=== PATIENT | female | born 1945 | race Caucasian/White ===

== ENCOUNTER 2019-06-18 21:11 | Emergency (ER) | payer MEDICARE ==
[2019-06-18] MEDS ORDERED: Bacitracin 1 PK ONE (21:44)
--- NOTE | 2019-06-18 22:05 | RAD ---
Right knee 4 views HISTORY: Fall. Knee injury. FINDINGS: Joint space narrowing at the lateral compartment with chronic appearing mild depression of the lateral tibial plateau. Moderate tricompartmental osteophytosis. No acute fracture or dislocation. Fluid distends the suprapatellar bursa on the lateral view. Dystrophic calcification ant erior to the proximal tibial shaft. IMPRESSION: Joint fluid may reflect and effusion from otherwise moderate osteoarthritic changes or co uld represent hemarthrosis from internal derangement. No acute osseous abnormalities are demonstrated.
== END 2019-06-18 22:31 | disposition home or self-care (01) ==
LOC: SCSER 21:11
DX: S80.01XA Contusion of right knee, initial encounter (principal); M17.11 Unilateral primary osteoarthritis, right knee; M25.471 Effusion, right ankle; J45.909 Unspecified asthma, uncomplicated; Z79.899 Other long term (current) drug therapy; W18.30XA Fall on same level, unspecified, initial encounter